=== PATIENT | female | born 1985 | race Two or more races ===

== ENCOUNTER 2020-04-07 13:14 | Emergency (ER) | payer MEDICAID ==
[~2020-04-07] VITALS: Ht 162.6 cm; Wt 68.9 kg
[~2020-04-07 13:14] MED LIST: NO MEDS PER PT
--- NOTE | 2020-04-07 14:15 | NUR ---
CHIROPRACTIC PHYSICIAN: PT TO ROOM FROM EFFIE GALLARDO
--- NOTE | 2020-04-07 14:24 | NUR ---
ERPA IN TO ASSESS PT. NAD NOTED AT THIS TIME. PT DENIES NEEDS AT THIS TIME.
== END 2020-04-07 15:03 | disposition home or self-care (01) ==
LOC: ED 14:05
DX: Z00.00 Encounter for general adult medical examination without abnormal findings (principal)
CPT/HCPCS: 99281

== ENCOUNTER 2020-04-10 06:20 | Emergency (ER) | payer MEDICAID ==
[~2020-04-10] VITALS: Ht 162.6 cm; Wt 69.9 kg
[2020-04-10 06:21] VITALS: BP 136/91
[2020-04-10 07:47] LABS: BASOPHILS # (AUTO) 0.02 x10^3/uL (0-0.1); BASOPHILS % (AUTO) 1 % (0-1); EOSINOPHILS # (AUTO) 0.05 x10^3/uL (0-0.4); EOSINOPHILS % (AUTO) 1 % (1-7); LYMPHOCYTES % (AUTO) 39 % (22-44); MD NO; MEAN CORPUSCULAR HEMOGLOBIN 28.6 pg (27.0-34.8); MEAN CORPUSCULAR HGB CONC 32.5 g/dL (32.4-35.8); MONOCYTES # (AUTO) 0.44 x10^3/uL (0.2-0.8); MONOCYTES % (AUTO) 9 % (2-9); NEUTROPHILS # (AUTO) 2.58 x10^3/uL (1.8-6.8); NEUTROPHILS % (AUTO) 51 % (42-75); PLATELET COUNT 230 x10^3/uL (130-400); RED BLOOD COUNT 4.16 x10^6/uL (3.82-5.3); RED CELL DISTRIBUTION WIDTH 12.8 % (9.6-15.2)
[2020-04-10 07:58] LABS: ANION GAP 5 mmol/L (5-15); CALCIUM 8.9 mg/dL (8.5-10.1); CHLORIDE 108 mmol/L (98-107); CREATININE 0.57 mg/dL (0.55-1.02)
[2020-04-10 08:02] LABS: TROPONIN I < 0.015 ng/mL (0.000-0.045)
[2020-04-10] MEDS ORDERED: POTASSIUM CHLORIDE 20 MEQ PACKET PO ONE (08:30)
[2020-04-10] MEDS ORDERED: POTASSIUM CHLORIDE 20 MEQ PACKET ONE (08:34)
[2020-04-10] MEDS ORDERED: AZITHROMYCIN 250 MG TABLET ONE (08:44)
[2020-04-10] MEDS ORDERED: CEFTRIAXONE PMX 1GM/50ML 50 ML ONE (08:44)
[2020-04-10] MEDS ORDERED: AZITHROMYCIN 500 MG TABLET PO ONE (09:00)
[2020-04-10] MEDS ORDERED: CEFTRIAXONE PMX 1GM/50ML 50 ML IV ONE (09:00)
== END 2020-04-10 10:18 | disposition home or self-care (01) ==
LOC: ED 08:01
DX: U07.1 COVID-19 (principal); J12.9 Viral pneumonia, unspecified; E87.6 Hypokalemia; R51 Headache; Z98.51 Tubal ligation status
CPT/HCPCS: 36415; 71045; 80048; 84484; 84703; 85025; 87635; 93005; 96365; 99285; J0696

== ENCOUNTER 2020-04-10 20:38 | Emergency (ER) | payer MEDICAID ==
[~2020-04-10] VITALS: Ht 162.6 cm; Wt 69.2 kg
[2020-04-10 20:40] VITALS: BP 125/79
[2020-04-10] MEDS ORDERED: DEXAMETHASONE 4 MG TABLET ONE (21:19)
[2020-04-10] MEDS ORDERED: BENZONATATE 100 MG CAPSULE ONE (21:30)
[2020-04-10] MEDS ORDERED: DEXAMETHASONE 4 MG TABLET PO ONE (21:30)
[2020-04-10] MEDS ORDERED: BENZONATATE 100 MG CAPSULE PO ONE (21:30)
--- NOTE | 2020-04-10 22:02 | NUR ---
report from [facility]
[2020-04-10] MEDS ORDERED: ALBUTEROL/IPRATROPIUM 2.5MG/0.5MG, 3 ML ONE (22:57)
[2020-04-10] MEDS ORDERED: ALBUTEROL/IPRATROPIUM 2.5MG/0.5MG, 3 ML NPPB ONE (23:00)
== END 2020-04-11 07:00 | disposition home or self-care (01) ==
LOC: ED 04-11 06:54
DX: U07.1 COVID-19 (principal); R51 Headache; R00.2 Palpitations; R53.83 Other fatigue; Z98.51 Tubal ligation status
CPT/HCPCS: 71045; 93005; 94640; 99283

== ENCOUNTER 2020-11-14 09:37 | Emergency (ER) | payer MEDICAID ==
[~2020-11-14] VITALS: Ht 160 cm; Wt 72.0 kg
[2020-11-14 09:42] VITALS: BP 132/48
[2020-11-14] MEDS ORDERED: KETOROLAC 30 MG/1 ML ONE (10:20)
[2020-11-14] MEDS ORDERED: ONDANSETRON ODT 4 MG ONE (10:21)
--- NOTE | 2020-11-14 10:23 | NUR ---
Cxr at bedside medicated per emar
--- NOTE | 2020-11-14 10:23 | NUR ---
SINCE SAT PT HAS HAD FEVER, CHILLS, BODY ACHES, HEADACHES, NAUSEA. DENIES BEING AROUND ANYONE WITH COVID. "I NEED A COVID TEST" no sob, pox 96%
[2020-11-14] MEDS ORDERED: KETOROLAC 30 MG/1 ML IM ONE (10:30)
[2020-11-14] MEDS ORDERED: ONDANSETRON ODT 4 MG PO ONE (10:30)
--- NOTE | 2020-11-14 10:32 | NUR ---
medicated per emar
--- NOTE | 2020-11-14 11:08 | NUR ---
PAIN IMPROVED TO 2/10, NAUSEA TO 0/10 PROVIDED WITH WORK NOTE, SXS TO WATCH FOR AND HOW SHE WILL BE NOTIFIED OF TESTING RESULTS
== END 2020-11-14 11:09 | disposition home or self-care (01) ==
LOC: ED 11:00
DX: J06.9 Acute upper respiratory infection, unspecified (principal); Z20.822 Contact with and (suspected) exposure to COVID-19; B34.9 Viral infection, unspecified; R51.9 Headache, unspecified; R50.9 Fever, unspecified
CPT/HCPCS: 71045; 87635; 96372; 99284; J1885; Q0162

== ENCOUNTER 2021-04-29 09:36 | Emergency (ER) | payer MEDICAID ==
[~2021-04-29] VITALS: Ht 160 cm; Wt 75.3 kg
[2021-04-29 10:01] VITALS: BP 117/63
== END 2021-04-29 10:58 ==
LOC: ED 10:48
DX: J06.9 Acute upper respiratory infection, unspecified (principal); Z20.822 Contact with and (suspected) exposure to COVID-19; Z87.891 Personal history of nicotine dependence
CPT/HCPCS: 99283; U0003; U0005